=== PATIENT | female | born 1950 | race African-American/Black ===

== ENCOUNTER 2018-01-19 15:42 | Inpatient (IN) | payer MEDICARE, MEDICAID ==
[~2018-01-19] VITALS: Ht 152.4 cm; Wt 60.8 kg
[~2018-01-19 15:42] MED LIST: ATOR40TA70 PO; DULO60CA63 PO; LOSA50TA20 PO; METO-539 PO; OMEP20CA10 PO; ONDA4TAB5 PO; TRAM50TA3 PO
[2018-01-19] MEDS ORDERED: OXYMETAZOLINE HCL NASAL SPRAY 15ML BOTHNSTRLS STA (18:01)
[2018-01-19 18:23] LABS: CLARITY URINE CLEAR (CLEAR); COLOR URINE YELLOW (YELLOW); KETONES URINE NEGATIVE (NEGATIVE); LEUKOCYTE ESTERASE URINE TRACE (NEGATIVE); NITRITE URINE NEGATIVE (NEGATIVE); OCCULT BLOOD URINE 1+ (NEGATIVE); PROTEIN URINE NEGATIVE (NEGATIVE); SPECIFIC GRAVITY URINE 1.011 (1.005-1.030)
[2018-01-19 18:49] LABS: BASOPHILS % 0.9 % (0.0-2.0); EOSINOPHILS % 3.6 % (0.0-5.0); HEMATOCRIT. 29.2 % (36.0-48.0); HEMOGLOBIN. 9.5 g/dL (12.0-16.0); LYMPHOCYTES % 27.8 % (20.0-50.0); MEAN CORPUSCULAR HEMOGLOBIN 27.8 pg (28.0-32.0); MEAN CORPUSCULAR VOLUME 85.8 fL (81.0-99.0); MONOCYTES % 6.9 % (2.0-8.0); NEUTROPHILS % 60.8 % (40.0-76.0); PLATELET 332 x1000/uL (130-400); RED CELL DISTRIBUTION WIDTH 18.1 % (11.6-14.6)
[2018-01-19 18:56] LABS: CHLORIDE 108 mEq/L (98-107)
[2018-01-19 19:01] LABS: INR 1.4; PROTHROMBIN TIME 13.8 sec (9.1-11.1)
[2018-01-19] MEDS ORDERED: TRAMADOL 50MG TABLET PO ONE (20:15)
[2018-01-19 21:40] VITALS: BP 178/88
[2018-01-19] MEDS ORDERED: FAMO20TA8 PO (22:17)
[2018-01-19] MEDS ORDERED: FLUT15.88 BOTHNSTRLS (22:17)
[2018-01-19] MEDS ORDERED: METF-416 PO (22:17)
[2018-01-19] MEDS ORDERED: DABI150C PO (22:17)
[2018-01-19] MEDS ORDERED: PANT40TA4 PO (22:17)
[2018-01-19] MEDS ORDERED: TRAZ150T78 PO (22:17)
[2018-01-19] MEDS ORDERED: POTA10TA20 PO (22:17)
[2018-01-19] MEDS ORDERED: BUPR1TAB34 SL (22:23)
[2018-01-19] MEDS ORDERED: DIPH50CA4 PO (22:23)
[2018-01-19] MEDS ORDERED: HYDR-4001 PO (22:23)
[2018-01-19] MEDS ORDERED: DOCU250C14 GT (22:23)
[2018-01-19] MEDS ORDERED: FOLI-43 PO (22:23)
[2018-01-19] MEDS ORDERED: LORA10TA7 PO (22:23)
[2018-01-19] MEDS ORDERED: HYDRALAZINE 20MG/ML VIAL IV NR (23:14)
[2018-01-20] VITALS: BP 170/65
[2018-01-20] MEDS ORDERED: DIPHENHYDRAMINE 50MG/ML VIAL IV PRN
[2018-01-20] MEDS ORDERED: DEXTROSE 50% WATER 50ML SYRINGE IV PRN
[2018-01-20] MEDS ORDERED: HYDROCODONE/ACETAMINOPHEN 10/325MG TABLET PO PRN
[2018-01-20] MEDS ORDERED: LORAZEPAM 2MG/ML CPJ IV PRN
[2018-01-20] MEDS ORDERED: GUAIFENESIN 200MG/10ML SUGAR FREE UDC PO PRN
[2018-01-20] MEDS ORDERED: IPRATROPIUM/ALBUTEROL 0.5-3(2.5)MG/3ML NEB INH PRN
[2018-01-20] MEDS ORDERED: ONDANSETRON HCL 4MG/2ML INJ IV PRN
[2018-01-20] MEDS ORDERED: ACETAMINOPHEN 325MG TABLET PO PRN
[2018-01-20] MEDS ORDERED: MAGNESIUM/ALUMINUM HYDROXIDE/SIMETHICONE 30ML UDC PO PRN
[2018-01-20] MEDS: MORPHINE SULFATE 10MG/5ML ORAL SOLN UDC PO PRN ×3 (00:18→18:23)
[2018-01-20 04:00] VITALS: BP 137/61
[2018-01-20] MEDS: BLOOD SUGAR DIAGNOSTIC STRIP TEST SCH ×4 (06:06→21:10)
[2018-01-20] MEDS: INSULIN LISPRO 100 UNITS/ML SUBCUT SCH ×4 (06:06→21:00)
[2018-01-20 07:43] LABS: CHLORIDE 107 mEq/L (98-107)
[2018-01-20 07:59] LABS: CREATINE KINASE 38 IU/L (26-192); T4 FREE 1.32 ng/dL (0.76-1.46)
[2018-01-20 08:00] VITALS: BP 118/56
[2018-01-20 08:04] LABS: CREATINE KINASE MB FRACTION 1.4 ng/mL (0.5-3.6)
[2018-01-20 08:06] LABS: BASOPHILS % 0.9 % (0.0-2.0); HEMOGLOBIN. 9.4 g/dL (12.0-16.0); LYMPHOCYTES % 26.6 % (20.0-50.0); MEAN CORPUSCULAR HEMOGLOBIN 28.6 pg (28.0-32.0); MEAN PLATELET VOLUME 7.8 fl (7.4-10.4); MONOCYTES % 9.2 % (2.0-8.0); NEUTROPHILS % 58.3 % (40.0-76.0); PLATELET 322 x1000/uL (130-400); RED CELL DISTRIBUTION WIDTH 18.5 % (11.6-14.6)
[2018-01-20 11:56] VITALS: BP 119/47
[2018-01-20] MEDS: ENOXAPARIN 40MG/0.4ML SYR SUBCUT SCH (14:49)
[2018-01-20 16:00] VITALS: BP 133/47
[2018-01-20 20:00] VITALS: BP 161/62
[2018-01-20 22:20] LABS: CREATINE KINASE 25 IU/L (26-192)
[2018-01-20 22:22] LABS: CREATINE KINASE MB FRACTION < 1.0 ng/mL (0.5-3.6)
[2018-01-21] VITALS: BP 137/58
[2018-01-21] MEDS: MORPHINE SULFATE 10MG/5ML ORAL SOLN UDC PO PRN ×3 (01:39→20:50)
[2018-01-21 04:00] VITALS: BP 112/44
[2018-01-21] MEDS: BLOOD SUGAR DIAGNOSTIC STRIP TEST SCH ×4 (06:45→20:50)
[2018-01-21] MEDS: INSULIN LISPRO 100 UNITS/ML SUBCUT SCH ×4 (07:15→20:50)
[2018-01-21 07:22] LABS: BASOPHILS % 0.7 % (0.0-2.0); HEMATOCRIT. 26.7 % (36.0-48.0); HEMOGLOBIN. 8.7 g/dL (12.0-16.0); LYMPHOCYTES % 26.6 % (20.0-50.0); MEAN CORPUSCULAR HEMOGLOBIN 27.7 pg (28.0-32.0); MEAN CORPUSCULAR VOLUME 85.5 fL (81.0-99.0); MEAN PLATELET VOLUME 7.8 fl (7.4-10.4); NEUTROPHILS % 59.7 % (40.0-76.0); PLATELET 291 x1000/uL (130-400); RED BLOOD CELL COUNT 3.13 mill/uL (4.2-5.4); RED CELL DISTRIBUTION WIDTH 18.4 % (11.6-14.6)
[2018-01-21 07:52] VITALS: BP 140/53
[2018-01-21 10:00] LABS: CHLORIDE 107 mEq/L (98-107)
[2018-01-21 10:20] LABS: T4 FREE 1.18 ng/dL (0.76-1.46)
[2018-01-21 12:00] VITALS: BP 150/64
[2018-01-21] MEDS: ENOXAPARIN 40MG/0.4ML SYR SUBCUT SCH (13:21)
[2018-01-21 16:00] VITALS: BP 155/83
[2018-01-21 17:17] LABS: CREATINE KINASE 32 IU/L (26-192)
[2018-01-21 17:18] LABS: CREATINE KINASE MB FRACTION < 1.0 ng/mL (0.5-3.6)
[2018-01-21 20:00] VITALS: BP 154/52
[2018-01-21] MEDS: DOCUSATE SODIUM 100MG CAPSULE PO PRN (20:58)
[2018-01-22] VITALS: BP 145/53
[2018-01-22 01:06] LABS: CREATINE KINASE 28 IU/L (26-192)
[2018-01-22 01:07] LABS: CREATINE KINASE MB FRACTION < 1.0 ng/mL (0.5-3.6)
[2018-01-22 04:00] VITALS: BP 135/53
[2018-01-22] MEDS: MORPHINE SULFATE 10MG/5ML ORAL SOLN UDC PO PRN ×2 (05:07→16:44)
[2018-01-22] MEDS: BLOOD SUGAR DIAGNOSTIC STRIP TEST SCH ×4 (06:45→20:44)
[2018-01-22] MEDS: INSULIN LISPRO 100 UNITS/ML SUBCUT SCH ×4 (06:45→20:45)
[2018-01-22 07:27] LABS: BASOPHILS % 0.8 % (0.0-2.0); EOSINOPHILS % 4.7 % (0.0-5.0); HEMATOCRIT. 25.6 % (36.0-48.0); HEMOGLOBIN. 8.4 g/dL (12.0-16.0); LYMPHOCYTES % 18.6 % (20.0-50.0); MEAN CORPUSCULAR HEMOGLOBIN 28.3 pg (28.0-32.0); MEAN CORPUSCULAR VOLUME 85.7 fL (81.0-99.0); MEAN PLATELET VOLUME 7.7 fl (7.4-10.4); MONOCYTES % 8.3 % (2.0-8.0); NEUTROPHILS % 67.6 % (40.0-76.0); PLATELET 273 x1000/uL (130-400); RED BLOOD CELL COUNT 2.99 mill/uL (4.2-5.4); RED CELL DISTRIBUTION WIDTH 17.9 % (11.6-14.6)
[2018-01-22 07:53] LABS: CHLORIDE 105 mEq/L (98-107)
[2018-01-22 08:00] VITALS: BP 161/79
[2018-01-22 08:03] LABS: CREATINE KINASE 31 IU/L (26-192)
[2018-01-22 08:05] LABS: CREATINE KINASE MB FRACTION < 1.0 ng/mL (0.5-3.6)
[2018-01-22] MEDS: CLONIDINE 0.1MG TABLET PO PRN (09:04)
[2018-01-22 12:00] VITALS: BP 130/45
[2018-01-22] MEDS: ENOXAPARIN 40MG/0.4ML SYR SUBCUT SCH (13:49)
[2018-01-22 16:00] VITALS: BP 149/58
[2018-01-22 20:00] VITALS: BP 116/49
[2018-01-22] MEDS: CARVEDILOL 3.125 MG TABLET PO SCH (20:45)
[2018-01-23] VITALS: BP 129/53
[2018-01-23 04:00] VITALS: BP 150/65
[2018-01-23] MEDS: BLOOD SUGAR DIAGNOSTIC STRIP TEST SCH ×4 (06:10→21:43)
[2018-01-23] MEDS: INSULIN LISPRO 100 UNITS/ML SUBCUT SCH ×4 (06:25→21:00)
[2018-01-23 08:00] VITALS: BP 153/55
[2018-01-23] MEDS: CARVEDILOL 3.125 MG TABLET PO SCH ×2 (10:15→20:50)
[2018-01-23] MEDS: DOCUSATE SODIUM 100MG CAPSULE PO PRN (10:23)
[2018-01-23] MEDS: MORPHINE SULFATE 10MG/5ML ORAL SOLN UDC PO PRN ×2 (10:23→22:13)
[2018-01-23 12:00] VITALS: BP 135/57
[2018-01-23] MEDS: ENOXAPARIN 40MG/0.4ML SYR SUBCUT SCH (15:09)
[2018-01-23 16:00] VITALS: BP 153/90
[2018-01-23 20:00] VITALS: BP 151/58
[2018-01-24] VITALS: BP 140/63
[2018-01-24 04:00] VITALS: BP 115/50
[2018-01-24] MEDS: CLONIDINE 0.1MG TABLET PO PRN (06:46)
[2018-01-24] MEDS: BLOOD SUGAR DIAGNOSTIC STRIP TEST SCH ×2 (07:15→12:23)
[2018-01-24] MEDS: INSULIN LISPRO 100 UNITS/ML SUBCUT SCH ×2 (07:15→12:15)
[2018-01-24 08:00] VITALS: BP 125/64
[2018-01-24] MEDS ORDERED: MORPHINE SULFATE 4 MG/ML CPJ (NOT FOR IM USE) IV PRN (08:24)
[2018-01-24] MEDS ORDERED: IOHEXOL-350 100 ML BOTTLE ONE (11:53)
[2018-01-24 12:00] VITALS: BP 156/71
[2018-01-24] MEDS: CARVEDILOL 3.125 MG TABLET PO SCH (12:23)
[2018-01-24 14:20] VITALS: BP 156/71
[2018-01-24] MEDS ORDERED: LACTULOSE 20G/30ML UDC PO NR (14:30)
[2018-01-24] MEDS: ENOXAPARIN 40MG/0.4ML SYR SUBCUT SCH (14:43)
[2018-01-24 16:00] VITALS: BP 176/83
[2018-01-24] MEDS ORDERED: LACTULOSE 20G/30ML UDC PO PRN (21:00)
== END 2018-01-24 17:10 | disposition home or self-care (01) | DRG 115 ==
LOC: ER 15:42 → 5WST 19:19 → EDBEDREQ 19:40 → EDBEDREQTM 19:40 → ENRESERV 20:18
PROVIDERS: ADMIT Internal Medicine; ATTEND Internal Medicine
PROC: 4A00X4Z Measurement of Central Nervous Electrical Activity, External Approach (ICD-10-PCS; principal; 2018-01-21)
PROC: 5A09357 Assistance with Respiratory Ventilation, Less than 24 Consecutive Hours, Continuous Positive Airway Pressure (ICD-10-PCS; 2018-01-21)
DX: R04.0 Epistaxis (principal); E44.0 Moderate protein-calorie malnutrition; E11.22 Type 2 diabetes mellitus with diabetic chronic kidney disease; E87.8 Other disorders of electrolyte and fluid balance, not elsewhere classified; I27.20 Pulmonary hypertension, unspecified; D64.9 Anemia, unspecified; E78.00 Pure hypercholesterolemia, unspecified; E78.5 Hyperlipidemia, unspecified; G47.33 Obstructive sleep apnea (adult) (pediatric); Z96.611 Presence of right artificial shoulder joint; Z96.612 Presence of left artificial shoulder joint; G24.9 Dystonia, unspecified; I34.0 Nonrheumatic mitral (valve) insufficiency; R26.9 Unspecified abnormalities of gait and mobility; I13.10 Hypertensive heart and chronic kidney disease without heart failure, with stage 1 through stage 4 chronic kidney disease, or unspecified chronic kidney disease; M13.0 Polyarthritis, unspecified; N18.9 Chronic kidney disease, unspecified; Z79.02 Long term (current) use of antithrombotics/antiplatelets; I69.354 Hemiplegia and hemiparesis following cerebral infarction affecting left non-dominant side; Z90.710 Acquired absence of both cervix and uterus; Z88.5 Allergy status to narcotic agent; Z79.899 Other long term (current) drug therapy; Z90.49 Acquired absence of other specified parts of digestive tract; Z79.1 Long term (current) use of non-steroidal anti-inflammatories (NSAID); Z68.26 Body mass index [BMI] 26.0-26.9, adult; D50.8 Other iron deficiency anemias
CPT/HCPCS: 36415; 70551; 71045; 71275; 78582; 80048; 80061; 82550; 82553; 82962; 83036; 83605; 83880; 84439; 84443; 84484; 85379; 86850; 86900; 93005; 93306; 93970; 94660; 97162; 99291; A9558; C1893; J0360; J1650; J2060; J2270; J2405; Q9967

== ENCOUNTER 2018-05-17 15:29 | Emergency (ER) | payer MEDICARE, MEDICAID ==
[~2018-05-17] VITALS: Ht 152.4 cm; Wt 60.0 kg
[~2018-05-17 15:29] MED LIST changes: +BUPR1TAB34 SL; +DIPH50CA4 PO; +DOCU250C14 GT; -DULO60CA63 PO; +FAMO20TA8 PO; +FLUT15.88 BOTHNSTRLS; +FOLI-43 PO; +HYDR-4001 PO; +LORA10TA7 PO; +METF-416 PO; +PANT40TA4 PO; +POTA10TA20 PO; -TRAM50TA3 PO; +TRAZ150T78 PO
[2018-05-17 16:09] LABS: BASOPHILS % 0.6 % (0.0-2.0); HEMATOCRIT. 32.5 % (36.0-48.0); HEMOGLOBIN. 10.5 g/dL (12.0-16.0); LYMPHOCYTES % 18.6 % (20.0-50.0); MEAN CORPUSCULAR HEMOGLOBIN 27.2 pg (28.0-32.0); MEAN CORPUSCULAR VOLUME 84.5 fL (81.0-99.0); MEAN PLATELET VOLUME 7.4 fl (7.4-10.4); NEUTROPHILS % 71.8 % (40.0-76.0); PLATELET 284 x1000/uL (130-400); RED BLOOD CELL COUNT 3.84 mill/uL (4.2-5.4); RED CELL DISTRIBUTION WIDTH 17.4 % (11.6-14.6)
[2018-05-17 16:15] LABS: CHLORIDE 110 mEq/L (98-107)
[2018-05-17 16:18] LABS: INR 1.3; PARTIAL THROMBOPLASTIN TIME 68.2 sec (23.4-31.0); PROTHROMBIN TIME 13.5 sec (9.1-11.1)
[2018-05-17] MEDS ORDERED: METHYLPREDNISOLONE SOD SUCC 125 MG/2 ML VIAL IV STA (17:04)
[2018-05-17] MEDS ORDERED: ALBUTEROL (0.083%) 2.5MG/3ML NEB HHN STA (17:04)
[2018-05-17] MEDS ORDERED: ONDANSETRON HCL 4MG/2ML INJ IV STA (17:04)
[2018-05-17] MEDS ORDERED: MORPHINE SULFATE 4 MG/ML CPJ (NOT FOR IM USE) IV STA (17:04)
[2018-05-17] MEDS ORDERED: FUROSEMIDE 40MG/4ML VIAL IV ONE (17:15)
[2018-05-17] MEDS ORDERED: NITROGLYCERIN OINT 1GM/INCH UDPKT TD ONE (17:15)
[2018-05-17] MEDS ORDERED: ASPIRIN 81MG TABLET PO ONE (17:15)
[2018-05-17] MEDS ORDERED: LEVOFLOXACIN 500MG PREMIX 100 ML IV ONE (17:30)
[2018-05-17] MEDS ORDERED: MORPHINE SULFATE 4 MG/ML CPJ (NOT FOR IM USE) IV ONE (19:15)
[2018-05-17] MEDS ORDERED: ONDANSETRON HCL 4MG/2ML INJ IV ONE (19:15)
[2018-05-17] MEDS ORDERED: ENALAPRIL 2.5MG/2ML VIAL 2ML IV ONE (19:15)
[2018-05-17 21:45] VITALS: BP 179/83
== END 2018-05-17 22:00 | disposition short-term general hospital (02) ==
LOC: ER 15:29 → CANBEDREQ 23:08
DX: I16.0 Hypertensive urgency (principal); I10 Essential (primary) hypertension; J18.0 Bronchopneumonia, unspecified organism; R51 Headache; J01.90 Acute sinusitis, unspecified; E11.9 Type 2 diabetes mellitus without complications; E78.00 Pure hypercholesterolemia, unspecified; Z86.73 Personal history of transient ischemic attack (TIA), and cerebral infarction without residual deficits; Z88.5 Allergy status to narcotic agent; Z79.899 Other long term (current) drug therapy
CPT/HCPCS: 36415; 70450; 71045; 80053; 83735; 83880; 84484; 85025; 85610; 85730; 93005; 96365; 96375; 99285; J1940; J1956; J2270; J2930; J3490; J7611; Z7610

== ENCOUNTER 2019-01-01 18:32 | Emergency (ER) | payer MEDICARE, MEDICAID ==
[~2019-01-01] VITALS: Ht 152.4 cm; Wt 73.0 kg
[~2019-01-01 18:32] MED LIST changes: -LOSA50TA20 PO; +LOSA50TA41 PO; -OMEP20CA10 PO; +OMEP20CA5 PO
[2019-01-01 22:39] LABS: BASOPHILS % 0.5 % (0.0-2.0); EOSINOPHILS % 1.8 % (0.0-5.0); HEMATOCRIT. 39.8 % (36.0-48.0); HEMOGLOBIN. 13.6 g/dL (12.0-16.0); LYMPHOCYTES % 14.8 % (20.0-50.0); MEAN CORPUSCULAR HEMOGLOBIN 30.9 pg (28.0-32.0); MEAN CORPUSCULAR VOLUME 90.1 fL (81.0-99.0); MEAN PLATELET VOLUME 7.3 fl (7.4-10.4); NEUTROPHILS % 74.9 % (40.0-76.0); PLATELET 204 x1000/uL (130-400); RED BLOOD CELL COUNT 4.42 mill/uL (4.2-5.4); RED CELL DISTRIBUTION WIDTH 14.7 % (11.6-14.6)
[2019-01-01 22:46] LABS: CHLORIDE 108 mEq/L (98-107); INR 1.2; PARTIAL THROMBOPLASTIN TIME 49.9 sec (23.4-31.0); PROTHROMBIN TIME 12.2 sec (9.6-11.0)
[2019-01-01 22:51] LABS: ETHANOL BLOOD < 10 mg/dL
[2019-01-02 00:19] LABS: CLARITY URINE CLOUDY (CLEAR); COLOR URINE YELLOW (YELLOW); KETONES URINE NEGATIVE (NEGATIVE); LEUKOCYTE ESTERASE URINE 2+ (NEGATIVE); NITRITE URINE NEGATIVE (NEGATIVE); OCCULT BLOOD URINE 1+ (NEGATIVE); PH URINE 6.5 (4.5-8.0); PROTEIN URINE NEGATIVE (NEGATIVE); SPECIFIC GRAVITY URINE 1.011 (1.005-1.030)
[2019-01-02 00:35] LABS: *AMPHETAMINES SCREEN URINE NEGATIVE (NEGATIVE); *BARBITURATES SCREEN URINE NEGATIVE (NEGATIVE); *BENZODIAZEPINES SCREEN URINE NEGATIVE (NEGATIVE); *COCAINE SCREEN URINE NEGATIVE (NEGATIVE); METHADONE URINE SCREEN NEGATIVE (NEGATIVE)
[2019-01-02 00:36] LABS: CANNABINOID URINE SCREEN NEGATIVE (NEGATIVE); OPIATES URINE SCREEN NEGATIVE (NEGATIVE); PHENCYCLIDINE URINE SCREEN NEGATIVE (NEGATIVE)
[2019-01-02] MEDS ORDERED: POTASSIUM CHLORIDE 20MEQ TABLET SR PO SCH (02:04)
[2019-01-02] MEDS ORDERED: POTASSIUM CHLORIDE 20MEQ/PACKET PO SCH (03:19)
[2019-01-02 04:02] VITALS: BP 140/66
== END 2019-01-02 04:41 | disposition home or self-care (01) ==
LOC: ER 18:32
DX: R55 Syncope and collapse (principal); R03.0 Elevated blood-pressure reading, without diagnosis of hypertension; F03.90 Unspecified dementia, unspecified severity, without behavioral disturbance, psychotic disturbance, mood disturbance, and anxiety; E11.9 Type 2 diabetes mellitus without complications; E78.00 Pure hypercholesterolemia, unspecified; I10 Essential (primary) hypertension; Z86.73 Personal history of transient ischemic attack (TIA), and cerebral infarction without residual deficits; Z79.899 Other long term (current) drug therapy; Z88.5 Allergy status to narcotic agent
CPT/HCPCS: 36415; 71045; 80305; 80320; 81003; 82962; 93005; 99284; G0480

== ENCOUNTER 2019-10-12 14:03 | Inpatient (IN) | payer MEDICARE, MEDICAID ==
[~2019-10-12] VITALS: Ht 149.9 cm; Wt 81.4 kg
[~2019-10-12 14:03] MED LIST changes: +FLUT15.844 BOTHNSTRLS; -FLUT15.88 BOTHNSTRLS; +OMEP20CA14 PO; -OMEP20CA5 PO
[2019-10-12] MEDS ORDERED: SODIUM CHLORIDE 0.9% 1000ML BAG (SEPSIS BOLUS) IV ONE (14:15)
[2019-10-12 14:47] LABS: CHLORIDE 107 mEq/L (98-107)
[2019-10-12 14:51] LABS: HEMATOCRIT. 25.7 % (36.0-48.0); HEMOGLOBIN. 8.8 g/dL (12.0-16.0); MEAN CORPUSCULAR HEMOGLOBIN 32.7 pg (28.0-32.0); MEAN CORPUSCULAR VOLUME 95.8 fL (81.0-99.0); MEAN PLATELET VOLUME 7.6 fl (7.4-10.4); PLATELET 195 x1000/uL (130-400); RED BLOOD CELL COUNT 2.68 mill/uL (4.2-5.4); RED CELL DISTRIBUTION WIDTH 14.1 % (11.6-14.6)
[2019-10-12 14:55] LABS: INR 1.6; PROTHROMBIN TIME 16.7 sec (9.6-11.0)
[2019-10-12 15:07] LABS: CREATINE KINASE 3442 IU/L (26-192)
[2019-10-12 15:16] LABS: PLATELET ESTIMATE NORMAL
[2019-10-12] MEDS ORDERED: CEFTRIAXONE 1 G PREMIX 50 ML IV NR (15:45)
[2019-10-12] MEDS ORDERED: METRONIDAZOLE 500 MG PREMIX 100 ML IV NR (17:15)
[2019-10-12 17:42] LABS: CLARITY URINE CLEAR (CLEAR); COLOR URINE DARK YELLOW (YELLOW); KETONES URINE NEGATIVE (NEGATIVE); LEUKOCYTE ESTERASE URINE TRACE (NEGATIVE); NITRITE URINE NEGATIVE (NEGATIVE); OCCULT BLOOD URINE 2+ (NEGATIVE); PROTEIN URINE TRACE (NEGATIVE); SPECIFIC GRAVITY URINE 1.022 (1.005-1.030)
[2019-10-12] MEDS ORDERED: MORPHINE SULFATE 2 MG/ML CPJ (NOT FOR IM USE) IV ONE (20:15)
[2019-10-12] MEDS ORDERED: VANCOMYCIN 1 G PREMIX 200 ML IV SCH (23:15)
[2019-10-12] MEDS ORDERED: CLONIDINE 0.1MG TABLET PO PRN (23:15)
[2019-10-12] MEDS ORDERED: PIPERACILLIN/TAZ 3.375G PREMIX 50 ML IV SCH (23:15)
[2019-10-12] MEDS ORDERED: ONDANSETRON HCL 4MG/2ML INJ IV PRN (23:15)
[2019-10-12] MEDS ORDERED: DEXTROSE 50% WATER 50ML SYRINGE IV PRN (23:15)
[2019-10-12] MEDS ORDERED: ACETAMINOPHEN 325MG TABLET PO PRN ×2 (23:15)
[2019-10-12] MEDS ORDERED: MAGNESIUM/ALUMINUM HYDROXIDE/SIMETHICONE 30ML UDC PO PRN (23:15)
[2019-10-12] MEDS: SODIUM CHLORIDE 0.9% 1,000 ML IV SCH (23:31)
[2019-10-13] MEDS ORDERED: VANCOMYCIN 1250MG in DEXTROSE 5% WATER 250ML IV NR ×2
[2019-10-13] MEDS: SODIUM CHLORIDE 0.9% 1,000 ML IV SCH ×2 (02:18→14:00)
[2019-10-13 05:36] LABS: BASOPHILS % 0.6 % (0.0-2.0); EOSINOPHILS % 6.6 % (0.0-5.0); HEMATOCRIT. 24.1 % (36.0-48.0); LYMPHOCYTES % 11.4 % (20.0-50.0); MEAN CORPUSCULAR HEMOGLOBIN 32.2 pg (28.0-32.0); MEAN CORPUSCULAR VOLUME 96.3 fL (81.0-99.0); MEAN PLATELET VOLUME 7.1 fl (7.4-10.4); MONOCYTES % 6.9 % (2.0-8.0); NEUTROPHILS % 74.5 % (40.0-76.0); PLATELET 155 x1000/uL (130-400); RED CELL DISTRIBUTION WIDTH 14.6 % (11.6-14.6)
[2019-10-13 05:43] LABS: CHLORIDE 117 mEq/L (98-107)
[2019-10-13 05:49] LABS: PHOSPHORUS 2.4 mg/dL (2.5-4.9)
[2019-10-13] MEDS ORDERED: PIPERACILLIN/TAZOBACTAM 2.25 G in DEXTROSE 5% WATER 50 ML IV SCH (06:00)
[2019-10-13 06:05] LABS: CREATINE KINASE 3534 IU/L (26-192)
[2019-10-13] MEDS: MORPHINE SULFATE 4 MG/ML CPJ (NOT FOR IM USE) IV PRN ×2 (06:22→12:52)
[2019-10-13] MEDS: INSULIN LISPRO 100 UNITS/ML SUBCUT SCH ×3 (08:20→20:42)
[2019-10-13] MEDS: ENOXAPARIN 30MG/0.3ML SYR SUBCUT SCH (09:00)
[2019-10-13] MEDS: FAMOTIDINE 20MG TABLET PO SCH (09:00)
[2019-10-13] MEDS: BLOOD SUGAR DIAGNOSTIC STRIP TEST SCH ×3 (09:45→20:25)
[2019-10-13] MEDS ORDERED: SODIUM PHOS,M-BASIC-D-BASIC 15 MM in DEXT 5% WATER 245 ML IV NR (14:30)
[2019-10-13 14:34] VITALS: BP 142/71
[2019-10-13] MEDS: HYDROCODONE/ACETAMINOPHEN 10/325MG TABLET PO PRN ×2 (15:09→21:19)
[2019-10-13 16:00] VITALS: BP 128/55
[2019-10-13] MEDS: PIPERACILLIN/TAZOBACTAM 2.25 G in DEXTROSE 5% WATER 50 ML IV SCH ×2 (17:24→23:14)
[2019-10-13 18:00] VITALS: BP 74/39
[2019-10-13 20:00] VITALS: BP 132/75
[2019-10-13] MEDS: MORPHINE SULFATE 2 MG/ML CPJ (NOT FOR IM USE) IV PRN (20:12)
[2019-10-13] MEDS: DIPHENHYDRAMINE 50MG/ML VIAL IV PRN (20:42)
[2019-10-13 22:00] VITALS: BP 115/63
[2019-10-14] VITALS (11 sets, daily range): BP systolic 95–160; BP diastolic 49–97
[2019-10-14] MEDS: MORPHINE SULFATE 2 MG/ML CPJ (NOT FOR IM USE) IV PRN ×4 (02:03→20:43)
[2019-10-14] MEDS: DIPHENHYDRAMINE 50MG/ML VIAL IV PRN (02:22)
[2019-10-14] MEDS: SODIUM CHLORIDE 0.9% 1,000 ML IV SCH ×2 (05:10→14:43)
[2019-10-14] MEDS: PIPERACILLIN/TAZOBACTAM 2.25 G in DEXTROSE 5% WATER 50 ML IV SCH ×4 (05:10→23:14)
[2019-10-14] MEDS: BLOOD SUGAR DIAGNOSTIC STRIP TEST SCH ×4 (06:11→21:02)
[2019-10-14 07:00] LABS: BASOPHILS % 0.6 % (0.0-2.0); EOSINOPHILS % 7.2 % (0.0-5.0); HEMATOCRIT. 23.6 % (36.0-48.0); HEMOGLOBIN. 7.9 g/dL (12.0-16.0); LYMPHOCYTES % 20.4 % (20.0-50.0); MEAN CORPUSCULAR HEMOGLOBIN 31.6 pg (28.0-32.0); MEAN CORPUSCULAR VOLUME 94.5 fL (81.0-99.0); MEAN PLATELET VOLUME 7.7 fl (7.4-10.4); MONOCYTES % 7.7 % (2.0-8.0); NEUTROPHILS % 64.1 % (40.0-76.0); PLATELET 176 x1000/uL (130-400); RED CELL DISTRIBUTION WIDTH 13.8 % (11.6-14.6)
[2019-10-14] MEDS: INSULIN LISPRO 100 UNITS/ML SUBCUT SCH ×5 (07:20→21:00)
[2019-10-14 07:51] LABS: CHLORIDE 115 mEq/L (98-107)
[2019-10-14 08:01] LABS: PHOSPHORUS 2.7 mg/dL (2.5-4.9)
[2019-10-14 08:16] LABS: CREATINE KINASE 1856 IU/L (26-192)
[2019-10-14] MEDS: FAMOTIDINE 20MG TABLET PO SCH (08:45)
[2019-10-14] MEDS: ENOXAPARIN 30MG/0.3ML SYR SUBCUT SCH (08:46)
[2019-10-14] MEDS: VANCOMYCIN 750 MG PREMIX 150 ML IV SCH (11:01)
[2019-10-14] MEDS: HYDROCODONE/ACETAMINOPHEN 10/325MG TABLET PO PRN (23:14)
[2019-10-15] VITALS (15 sets, daily range): BP systolic 113–191; BP diastolic 59–92
[2019-10-15] MEDS: VANCOMYCIN 750 MG PREMIX 150 ML IV SCH (04:12)
[2019-10-15] MEDS: SODIUM CHLORIDE 0.9% 1,000 ML IV SCH (04:13)
[2019-10-15] MEDS: PIPERACILLIN/TAZOBACTAM 2.25 G in DEXTROSE 5% WATER 50 ML IV SCH (06:10)
[2019-10-15] MEDS: INSULIN LISPRO 100 UNITS/ML SUBCUT SCH ×4 (06:25→21:00)
[2019-10-15] MEDS: BLOOD SUGAR DIAGNOSTIC STRIP TEST SCH ×4 (06:25→21:34)
[2019-10-15] MEDS: MORPHINE SULFATE 2 MG/ML CPJ (NOT FOR IM USE) IV PRN ×3 (06:47→18:53)
[2019-10-15 08:12] LABS: BASOPHILS % 1.2 % (0.0-2.0); EOSINOPHILS % 5.4 % (0.0-5.0); HEMATOCRIT. 23.3 % (36.0-48.0); LYMPHOCYTES % 21.8 % (20.0-50.0); MEAN CORPUSCULAR VOLUME 93.6 fL (81.0-99.0); MONOCYTES % 7.8 % (2.0-8.0); NEUTROPHILS % 63.8 % (40.0-76.0); PLATELET 181 x1000/uL (130-400); RED BLOOD CELL COUNT 2.49 mill/uL (4.2-5.4); RED CELL DISTRIBUTION WIDTH 13.5 % (11.6-14.6)
[2019-10-15 08:36] LABS: CHLORIDE 113 mEq/L (98-107)
[2019-10-15] MEDS: FAMOTIDINE 20MG TABLET PO SCH (09:44)
[2019-10-15] MEDS: ENOXAPARIN 30MG/0.3ML SYR SUBCUT SCH (09:44)
[2019-10-15] MEDS: HYDROCODONE/ACETAMINOPHEN 10/325MG TABLET PO PRN (09:46)
[2019-10-15] MEDS ORDERED: POTASSIUM PHOS,M-BASIC-D-BASIC 15 MMOL in DEXT 5% WATER 245 ML IV SCH (10:00)
== END 2019-10-15 22:09 | disposition short-term general hospital (02) | DRG 871 ==
LOC: ER 14:17 → 3WST 17:17 → EDBEDREQ 17:20 → EDBEDREQSVC 18:05 → EDBEDREQTM 19:35 → EDBEDREQSVC 10-13 10:47 → ENRESERV 10-13 12:31
PROVIDERS: ADMIT Internal Medicine; ATTEND Internal Medicine
PROC: B54MZZA Ultrasonography of Right Upper Extremity Veins, Guidance (ICD-10-PCS; principal; 2019-10-13)
PROC: 05HY33Z Insertion of Infusion Device into Upper Vein, Percutaneous Approach (ICD-10-PCS; 2019-10-13)
DX: A41.9 Sepsis, unspecified organism (principal); E43 Unspecified severe protein-calorie malnutrition; J96.90 Respiratory failure, unspecified, unspecified whether with hypoxia or hypercapnia; D68.9 Coagulation defect, unspecified; G93.40 Encephalopathy, unspecified; I69.354 Hemiplegia and hemiparesis following cerebral infarction affecting left non-dominant side; J81.1 Chronic pulmonary edema; M62.82 Rhabdomyolysis; N17.9 Acute kidney failure, unspecified; D64.9 Anemia, unspecified; E11.9 Type 2 diabetes mellitus without complications; Z60.2 Problems related to living alone; I95.9 Hypotension, unspecified; Z96.642 Presence of left artificial hip joint; I10 Essential (primary) hypertension; Z20.828 Contact with and (suspected) exposure to other viral communicable diseases; E86.1 Hypovolemia; E78.00 Pure hypercholesterolemia, unspecified; E83.39 Other disorders of phosphorus metabolism; F03.90 Unspecified dementia, unspecified severity, without behavioral disturbance, psychotic disturbance, mood disturbance, and anxiety; Z82.49 Family history of ischemic heart disease and other diseases of the circulatory system; Z83.3 Family history of diabetes mellitus; Z90.49 Acquired absence of other specified parts of digestive tract; Z88.6 Allergy status to analgesic agent; Z79.84 Long term (current) use of oral hypoglycemic drugs; Z79.899 Other long term (current) drug therapy; Z68.36 Body mass index [BMI] 36.0-36.9, adult
CPT/HCPCS: 36415; 71045; 74176; 76937; 80048; 80053; 80202; 81003; 82550; 82962; 83036; 83605; 83735; 84100; 84145; 84484; 85025; 87635; 93005; 93306; 93970; 99291; C1725; J0696; J1200; J1650; J1815; J2270; J2405; J2543; J3370; J3490; J7030; J7060; C9803-CS

== ENCOUNTER 2024-11-26 07:35 | Emergency (ER) | payer OTHER, MEDICAID ==
[~2024-11-26] VITALS: Ht 165.1 cm; Wt 75.0 kg
[~2024-11-26 07:35] MED LIST changes: -DIPH50CA4 PO; +DIPH50CA41 PO; -PANT40TA4 PO; +PANT40TA51 PO; +POTA-163 PO; -POTA10TA20 PO
[2024-11-26 07:39] VITALS: O2SAT 99
[2024-11-26] MEDS: LIDOCAINE HCL 1% 20ML VIAL INFIL SCH (08:56)
[2024-11-26] MEDS: TRAMADOL 50MG TABLET PO SCH (08:56)
[2024-11-26 11:13] VITALS: BP 143/50; PULSE 91; RESP 18; TEMP 36.8; O2SAT 100
[2024-11-26 11:19] LABS: CLARITY URINE CLEAR (CLEAR); COLOR URINE YELLOW (YELLOW); GLUCOSE URINE NEGATIVE (NEGATIVE); KETONES URINE NEGATIVE (NEGATIVE); LEUKOCYTE ESTERASE URINE NEGATIVE (NEGATIVE); NITRITE URINE NEGATIVE (NEGATIVE); OCCULT BLOOD URINE NEGATIVE (NEGATIVE); PH URINE 7.0 (4.5-8.0); PROTEIN URINE NEGATIVE (NEGATIVE); SPECIFIC GRAVITY URINE 1.012 (1.005-1.030); UROBILINOGEN URINE 0.2 E.U./dL (0.2-1.0)
== END 2024-11-26 11:27 | disposition short-term general hospital (02) ==
LOC: ER 07:35
DX: S82.832A Other fracture of upper and lower end of left fibula, initial encounter for closed fracture (principal); E11.9 Type 2 diabetes mellitus without complications; I11.0 Hypertensive heart disease with heart failure; J44.9 Chronic obstructive pulmonary disease, unspecified; K21.9 Gastro-esophageal reflux disease without esophagitis; I50.9 Heart failure, unspecified; Z79.899 Other long term (current) drug therapy; Z79.84 Long term (current) use of oral hypoglycemic drugs; Z86.73 Personal history of transient ischemic attack (TIA), and cerebral infarction without residual deficits; Z88.5 Allergy status to narcotic agent; W01.0XXA Fall on same level from slipping, tripping and stumbling without subsequent striking against object, initial encounter; Y93.01 Activity, walking, marching and hiking; Y92.89 Other specified places as the place of occurrence of the external cause; Y99.8 Other external cause status
CPT/HCPCS: 99285; 29515; 81003; 73610; J2003; A6449